=== PATIENT | male | born 1960 | race Caucasian/White ===

== ENCOUNTER 2021-01-28 11:17 | Emergency (ER) | payer OTHER ==
[2021-01-28] MEDS ORDERED: BUPRENORPHINE H1 TA1 SL (11:33)
[2021-01-28] MEDS ORDERED: NEURONTIN400 M1 (11:33)
[2021-01-28] MEDS ORDERED: RT SPIRIVA INH18 MCG (11:33)
[2021-01-28] MEDS ORDERED: SYMBICORT1 AE2 (11:33)
[2021-01-28 12:14] LABS: BASO # 0.02 K/mm3 (0.02-0.10); EOS # 0.34 K/mm3 (0.04-0.40); EOS % 6.6 % (0.0-4.0); HEMATOCRIT 35.5 % (42.0-52.0); HEMOGLOBIN 11.8 g/dL (13.5-18.0); LYMPH# 1.88 K/mm3 (1.50-4.00); MEAN CELL VOLUME 91 fl (78-100); MEAN CORPUSCULAR HEMOGLOBIN 30 pg (27-31); MEAN CORPUSCULAR HGB CONC 33 g/dL (33-37); MONO # 0.42 K/mm3 (0.20-0.80); NEU # 2.47 K/mm3 (1.40-6.50); PLATELET COUNT 233 K/mm3 (130-400); RED CELL DISTRIBUTION WIDTH 12.9 % (11.5-14.5); WHITE BLOOD COUNT 5.1 K/mm3 (4.8-10.8)
[2021-01-28 12:23] LABS: ALBUMIN 4.1 g/dL (3.5-5.0)
[2021-01-28 12:24] LABS: POTASSIUM 4.3 mmol/L (3.5-5.1)
[2021-01-28 12:25] LABS: CALCIUM 9.9 mg/dL (8.3-10.5)
[2021-01-28 12:26] LABS: TOTAL PROTEIN 7.5 g/dL (6.4-8.3)
[2021-01-28 12:28] LABS: TOTAL BILIRUBIN 0.4 mg/dL (0.2-1.2)
[2021-01-28 13:14] VITALS: BP 124/70
== END 2021-01-28 13:14 | disposition home or self-care (01) ==
LOC: ED 11:17
PROVIDERS: Nurse Practitioner
DX: R60.0 Localized edema (principal); I10 Essential (primary) hypertension